=== PATIENT | female | born 1995 | race Caucasian/White ===

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

== ENCOUNTER 2018-04-25 13:11 | Observation (INO) | payer OTHER ==
[2018-04-25] MEDS ORDERED: IV RINGERS,LACTATED 1000ML 1,000 ML IV (14:00)
[2018-04-25] MEDS ORDERED: ACETAMINOPHEN 325 MG TABLET. PO (14:00)
[2018-04-25] MEDS ORDERED: ONDANSETRON PF 4 MG/2 ML VIAL. IV (14:15)
[2018-04-25] MEDS: ONDANSETRON PF 4 MG/2 ML VIAL. IV (14:29)
[2018-04-25] MEDS ORDERED: hydrOXYzine PAMOATE 25 MG CAPSULE PO (14:30)
[2018-04-25] MEDS: IV DEXTROSE 5%-LACT RINGERS 1,000 ML IV ×2 (14:35→18:14)
[2018-04-25 14:47] LABS: ANION GAP 16 (6-14); BLOOD UREA NITROGEN 10 mg/dL (7-20); BUN/CREATININE RATIO 17 (6-20); CALCIUM 8.9 mg/dL (8.5-10.1); CARBON DIOXIDE 22 mmol/L (21-32); CHLORIDE 100 mmol/L (98-107); CREATININE 0.6 mg/dL (0.6-1.0); GFR 126.2; GLUCOSE 82 mg/dL (70-99); POTASSIUM 3.3 mmol/L (3.5-5.1); SODIUM 138 mmol/L (136-145)
[2018-04-25 14:52] LABS: ALBUMIN 3.3 g/dL (3.4-5.0); ALBUMIN/GLOBULIN RATIO 0.7 (1.0-1.7); ALK PHOS 112 U/L (46-116); ALT (SGPT) 42 U/L (14-59); AST (SGOT) 45 U/L (15-37); TOTAL PROTEIN 7.9 g/dL (6.4-8.2)
[2018-04-25 15:03] LABS: BASO % 0 % (0-3); EOS % 0 % (0-3); HEMATOCRIT 34.3 % (36.0-47.0); HEMOGLOBIN 11.8 g/dL (12.0-15.5); LYMPH # 0.9 x10^3/uL (1.0-4.8); LYMPH % 9 % (24-48); MEAN CORPUSCULAR HEMOGLOBIN 29 pg (25-35); MEAN CORPUSCULAR HGB CONC 34 g/dL (31-37); MEAN CORPUSCULAR VOLUME 86 fL (79-100); MONO # 0.4 x10^3/uL (0.0-1.1); MONO % 3 % (0-9); NEUT # 9.6 x10^3uL (1.8-7.7); NEUT % 88 % (31-73); PLATELET COUNT 215 x10^3/uL (140-400); RED CELL DISTRIBUTION WIDTH 12.8 % (11.5-14.5); WHITE BLOOD COUNT 10.9 x10^3/uL (4.0-11.0)
[2018-04-25 15:05] LABS: ADD MAN DIFF? YES
[2018-04-25 17:10] LABS: % BANDS 7 % (0-9); % LYMPHS 7 % (24-48); % MONOS 4 % (0-10); % SEGS 82 % (35-66); PLT ESTIMATE ADEQUATE (ADEQUATE)
[2018-04-25 17:14] LABS: TOXIC GRANULATION MOD
== END 2018-04-25 20:15 | disposition home or self-care (01) ==
LOC: 3 SO LND 13:11
DX: O21.2 Late vomiting of pregnancy (principal); O26.893 Other specified pregnancy related conditions, third trimester; R10.9 Unspecified abdominal pain; Z3A.29 29 weeks gestation of pregnancy
CPT/HCPCS: 36415; 80053; 85007; 85025; 96361; 96374; G0378; G0379; J2405

== ENCOUNTER 2018-05-12 17:24 | Observation (INO) | payer OTHER ==
[2018-05-12 17:52] LABS: BILIRUBIN,URINE NEGATIVE (NEG); CLARITY,URINE CLEAR; COLOR,URINE YELLOW; GLUCOSE,URINE NEGATIVE (NEG); NITRITE,URINE NEGATIVE (NEG); PH,URINE 6.5; PROTEIN,URINE NEGATIVE (NEG-TRACE)
[2018-05-12] MEDS ORDERED: IV RINGERS,LACTATED 1000ML 1,000 ML IV (18:00)
[2018-05-12 18:03] LABS: BACTERIA,URINE 0 /HPF (0-FEW); RBC,URINE 0 /HPF (0-2); SQUAMOUS EPITHELIAL CELL,UR OCC /LPF; WBC,URINE 0 /HPF (0-4)
[2018-05-12] MEDS: hydrOXYzine PAMOATE 25 MG CAPSULE PO (18:36)
== END 2018-05-12 18:50 | disposition home or self-care (01) ==
LOC: 3 SO LND 17:24
DX: O62.9 Abnormality of forces of labor, unspecified (principal); Z3A.31 31 weeks gestation of pregnancy
CPT/HCPCS: 81001; G0378; G0379; Q0177